=== PATIENT | female | born 1990 | race African-American/Black ===

== ENCOUNTER 2016-11-04 23:46 | Emergency (ER) | payer OTHER ==
[~2016-11-04] VITALS: Ht 167.6 cm; Wt 117.9 kg
[~2016-11-04 23:46] MED LIST: CARAFATE1 GM/10 ML PO; IBUPROFEN 800800 MG PO; OMEPRAZOLE20 M2 PO; ONDANSETRON HCL4 M2 PO
[2016-11-05 00:05] VITALS: BP 143/87
[2016-11-05] MEDS ORDERED: VENTOLIN HFA 1818 GM INH (00:09)
== END 2016-11-05 00:45 | disposition home or self-care (01) ==
LOC: ER 23:46
DX: H01.005 Unspecified blepharitis left lower eyelid (principal); G24.5 Blepharospasm; J45.909 Unspecified asthma, uncomplicated

== ENCOUNTER 2017-04-05 11:37 | Emergency (ER) | payer OTHER ==
[~2017-04-05] VITALS: Ht 170.2 cm; Wt 132.9 kg
[~2017-04-05 11:37] MED LIST changes: +VENTOLIN HFA 1818 GM INH
[2017-04-05 11:39] VITALS: BP 145/82
[2017-04-05] MEDS ORDERED: CLEOCIN HCL150 MG PO (12:25)
== END 2017-04-05 12:40 | disposition home or self-care (01) ==
LOC: ER 11:37
DX: L03.213 Periorbital cellulitis (principal); J45.909 Unspecified asthma, uncomplicated